=== PATIENT | male | born 2000 | race Hispanic/Latino ===

== ENCOUNTER → 2019-05-26 | Day surgery (SDC) | payer SELFPAY ==
[~2019-05-26] MED LIST: FENTANYL CITRATE/PF 100MCG/2 ML INJ ONE; MIDAZOLAM HCL 2 MG/2 ML VIAL ONE; PANTOPRAZOLE SO40 MG PO; PROPOFOL IV EMULSION 10 MG/ML 50 ML VIAL ONE
--- OUTSIDE RECORDS SUMMARY | 2019-05-26 08:17 | XMS REPORT ---
[facility] Address Unknown Phone Unavailable Care Team Providers Care Mother Tester Name Role Phone Unavailable Unavailable Payers Payer Name Policy Type Policy Number Effective Date Expiration Date Problems This patient has no known problems. Allergies, Adverse Reactions, Alerts Allergy Name Allergy Type Status Severity Reaction(s) Onset Date Inactive Date Treating Clinician Comments No Known Allergies DA Active U 2019-01-04 00:00:00 No Known Allergies DA Active U 2017-12-10 00:00:00 Medications This patient has no known medications. Encounters Start Date/Time End Date/Time Encounter Type Admission Type Attending Clinicians Care Facility Care Department Encounter ID 2017-10-26 00:00:00 2017-10-26 00:00:00 Outpatient [facility] [id number] 2017-08-06 00:00:00 2017-08-06 00:00:00 Outpatient [facility] [id number] 2017-08-04 00:00:00 2017-08-04 00:00:00 Outpatient [facility] [id number] 2017-07-17 00:00:00 2017-07-17 00:00:00 Outpatient [facility] [id number] 2017-06-16 08:07:53 2017-06-16 08:07:53 Outpatient [facility] [id number] 2017-04-02 00:00:00 2017-04-02 00:00:00 Outpatient [facility] [id number] 2017-03-13 00:00:00 2017-03-13 00:00:00 Outpatient [facility] [id number] 2017-03-09 00:00:00 2017-03-09 00:00:00 Outpatient [facility] [id number] 2017-02-05 07:53:26 2017-02-05 07:53:26 Outpatient [facility] [id number] Results Test Description Test Time Test Comments Text Results Atomic Results Result Comments BASIC METABOLIC PANEL 2018-12-22 18:47:00 SODIUM (test code=NA) 138 mmol/L 136-145 POTASSIUM (test code=K) 4.0 mmol/L 3.5-5.1 CHLORIDE (test code=CL) 102.0 mmol/L 98-107 CARBON DIOXIDE (test code=CO2) 27.0 mmol/L 21-32 ANION GAP (test code=GAP) 13.0 10-20 GLUCOSE (test code=GLU) 95 mg/dL 74-106 BLOOD UREA NITROGEN (test code=BUN) 7 mg/dL 7-18 GLOMERULAR FILTRATION RATE (test code=GFR) > 60 mL/min >=60 Estimated GFR by using Modified MDRD formula.Chronic kidney disease is defined as either kidney damageor GFR <60 mL/min/1.73 m2 for >3 months. CREATININE (test code=CREAT) 0.90 mg/dL 0.7-1.3 BUN/CREATININE RATIO (test code=BUN/CREA) 7.8 10-20 CALCIUM (test code=CA) 9.5 mg/dL 8.5-10.1 HEPATIC FUNCTION [id number] 18:47:00* Test Item Value Reference Range Comments TOTAL PROTEIN (test code=PROT) 8.9 gram/dL 6.4-8.2 ALBUMIN (test code=ALB) 4.4 g/dL 3.4-5.0 GLOBULIN (test code=GLOB) 4.5 gram/dL 2.7-4.2 ALBUMIN/GLOBULIN RATIO (test code=A/G) 1.0 0.75-1.50 BILIRUBIN TOTAL (test code=BILT) 0.80 mg/dL 0.0-1.0 BILIRUBIN DIRECT (test code=BILD) 0.25 mg/dL 0.0-0.20 SGOT/AST (test code=AST) 23 IUnit/L 15-37 SGPT/ALT (test code=ALT) 72 IUnit/L 12-78 ALKALINE PHOSPHATASE TOTAL (test code=ALKP) 80 IUnit/L 65-260 [id number] 18:47:00* Test Item Value Reference Range Comments LIPASE (test code=LIP) 68 U/L 73.0-393.0 [id number] 18:47:00* Test Item Value Reference Range Comments TROPONIN-I (test code=TROPI) <0.015 ng/mL 0-0.045 - XR ABDOMEN AP 1 [id number] 18:42:00 FAX: Devi Kendrick NP [place]: St: REG Name: MICHAEL HENNING [facility] : [birth year] Age/S: 18/M [address] [facility] Unit #: [id number] Loc: [place] [address] Phys: Devi Kendrick NP Acct: [id number] Dis Date: Status: REG ER PHONE #: [phone] Exam Date: 12/22/2018 1841 FAX #: [phone] Reason: ABDOMINAL PAIN EXAMS: CPT CODE: [id number] XR ABDOMEN AP 1 V [id number] REASON FOR EXAM: ABDOMINAL PAIN EXAM ORDER DATE: 12/22/2018 5:56 PM Attending Latricia: Zaina Kendrick NP PROCEDURE: - XR ABDOMEN AP 1 V COMP ARISON: FINDINGS: One view of the abdomen obtained at 6:37 PM. Sc attered fecal material is seen in the colon. The small bowel is unremarka ble. No evidence of organomegaly or evidence of ascites. No evidence of free air. IMPRESSION: Unremarkable abdomen. Lindy ctronically Signed by Latricia Joyce on 12/22/2018 at 1842 Reported and signed by: Gordo Joyce M.D. CC: Devi Kendrick NP Technologist: AKYLA PICKARD Trnscrd Date/Time/By: 12/22/2018 (1841) : By: Divina NOVOA Orig Print D/T: S: 12/22/2018 (1845) MARLYN JERNIGAN 1 Signed Report BASIC METABOLIC [id number] 18:24:00* Test Item Value Reference Range Comments SODIUM (test code=NA) 138 mmol/L 136-145 POTASSIUM (test code=K) 4.0 mmol/L 3.5-5.1 CHLORIDE (test code=CL) 102.0 mmol/L 98-107 CARBON DIOXIDE (test code=CO2) mmol/L 21-32 ANION GAP (test code=GAP) 10-20 GLUCOSE (test code=GLU) mg/dL 74-106 BLOOD UREA NITROGEN (test code=BUN) mg/dL 7-18 GLOMERULAR FILTRATION RATE (test code=GFR) mL/min >=60 CREATININE (test code=CREAT) mg/dL 0.7-1.3 BUN/CREATININE RATIO (test code=BUN/CREA) 10-20 CALCIUM (test code=CA) mg/dL 8.5-10.1 HEPATIC FUNCTION [id number] 18:24:00* Test Item Value Reference Range Comments TOTAL PROTEIN (test code=PROT) gram/dL 6.4-8.2 ALBUMIN (test code=ALB) g/dL 3.4-5.0 GLOBULIN (test code=GLOB) gram/dL 2.7-4.2 ALBUMIN/GLOBULIN RATIO (test code=A/G) 0.75-1.50 BILIRUBIN TOTAL (test code=BILT) mg/dL 0.0-1.0 BILIRUBIN DIRECT (test code=BILD) mg/dL 0.0-0.20 SGOT/AST (test code=AST) IUnit/L 15-37 SGPT/ALT (test code=ALT) IUnit/L 12-78 ALKALINE PHOSPHATASE TOTAL (test code=ALKP) IUnit/L 65-260 [id number] 18:24:00* Test Item Value Reference Range Comments LIPASE (test code=LIP) U/L 73.0-393.0 [id number] 18:24:00* Test Item Value Reference Range Comments TROPONIN-I (test code=TROPI) ng/mL 0-0.045 URINALYSIS [id number] 18:17:00* Test Item Value Reference Range Comments UA COLOR (test code=COLU) Light-Yellow YELLOW UA APPEARANCE (test code=APPU) CLEAR CLEAR UA GLUCOSE DIPSTICK (test code=DGLUU) NEGATIVE mg/dL NEGATIVE UA BILIRUBIN DIPSTICK (test code=BILU) NEGATIVE mg/dL NEGATIVE UA KETONE DIPSTICK (test code=KETU) 40 (2+) mg/dL NEGATIVE UA SPECIFIC GRAVITY (test code=SGU) 1.012 1.001-1.035 UA BLOOD DIPSTICK (test code=ANAHY) Negative mg/dL NEGATIVE UA PH DIPSTICK (test code=DEVANG) 7.5 5.0-8.0 UA PROTEIN DIPSTICK (test code=PROU) NEGATIVE mg/dL NEGATIVE UA UROBILINIOGEN DIPSTICK (test code=URO) Normal mg/dL NEGATIVE UA NITRITE DIPSTICK (test code=TRENT) NEGATIVE NEGATIVE UA LEUKOCYTE ESTERASE W REFLEX (test code=LEUUR) NEGATIVE Elena/uL NEGATIVE UA WBC (test code=WBCU) 0-5 per HPF 0-5 UA RBC (test code=RBCU) 0-3 #/HPF 0-5 UA EPITHELIAL CELLS (test code=EPIU) Few (2-5/hpf) per HPF FEW UA BACTERIA (test code=BACU) FEW #/HPF NONE UA MUCUS (test code=MUCU) FEW #/LPF FEW Urine Source? Clean CatchCBC W/O [id number] 18:14:00* Test Item Value Reference Range Comments WHITE BLOOD CELL (test code=WBC) 9.3 K/mm3 4.5-12.5 RED BLOOD CELL (test code=RBC) 5.36 mill/mm3 4.0-5.8 HEMOGLOBIN (test code=HGB) 15.5 gram/dL 13.0-17.5 HEMATOCRIT (test code=HCT) 45.2 % 42.0-52.0 MEAN CELL VOLUME (test code=MCV) 84.3 fL 80-98 MEAN CELL HGB (test code=MCH) 28.9 picogram 27.0-33.0 MEAN CELL HGB CONCETRATION (test code=MCHC) 34.3 gram/dL 33.0-36.0 RED CELL DISTRIBUTION WIDTH (test code=RDW) 13.1 % 11.6-16.2 PLATELET COUNT (test code=PLT) 354 K/mm3 150-450 MEAN PLATELET VOLUME (test code=MPV) 9.6 fL 6.7-11.0 URINALYSIS [id number] 18:09:00* Test Item Value Reference Range Comments UA COLOR (test code=COLU) Light-Yellow YELLOW UA APPEARANCE (test code=APPU) CLEAR CLEAR UA GLUCOSE DIPSTICK (test code=DGLUU) NEGATIVE mg/dL NEGATIVE UA BILIRUBIN DIPSTICK (test code=BILU) NEGATIVE mg/dL NEGATIVE UA KETONE DIPSTICK (test code=KETU) 40 (2+) mg/dL NEGATIVE UA SPECIFIC GRAVITY (test code=SGU) 1.012 1.001-1.035 UA BLOOD DIPSTICK (test code=ANAHY) Negative mg/dL NEGATIVE UA PH DIPSTICK (test code=DEVANG) 7.5 5.0-8.0 UA PROTEIN DIPSTICK (test code=PROU) NEGATIVE mg/dL NEGATIVE UA UROBILINIOGEN DIPSTICK (test code=URO) Normal mg/dL NEGATIVE UA NITRITE DIPSTICK (test code=TRENT) NEGATIVE NEGATIVE UA LEUKOCYTE ESTERASE W REFLEX (test code=LEUUR) NEGATIVE Elena/uL NEGATIVE UA WBC (test code=WBCU) per HPF 0-5 UA RBC (test code=RBCU) per HPF 0-5 UA EPITHELIAL CELLS (test code=EPIU) per HPF Few UA BACTERIA (test code=BACU) per HPF NONE Urine Source? Clean CatchCBC W/O [id number] 18:09:00* Test Item Value Reference Range Comments WHITE BLOOD CELL (test code=WBC) K/mm3 4.5-12.5 RED BLOOD CELL (test code=RBC) mill/mm3 4.0-5.8 HEMOGLOBIN (test code=HGB) 15.5 gram/dL 13.0-17.5 HEMATOCRIT (test code=HCT) 45.2 % 42.0-52.0 MEAN CELL VOLUME (test code=MCV) fL 80-98 MEAN CELL HGB (test code=MCH) picogram 27.0-33.0 MEAN CELL HGB CONCETRATION (test code=MCHC) gram/dL 33.0-36.0 RED CELL DISTRIBUTION WIDTH (test code=RDW) % 11.6-16.2 PLATELET COUNT (test code=PLT) K/mm3 150-450 MEAN PLATELET VOLUME (test code=MPV) fL 6.7-11.0 URINALYSIS [id number] 00:37:00* Test Item Value Reference Range Comments UA COLOR (test code=COLU) YELLOW YELLOW UA APPEARANCE (test code=APPU) CLEAR CLEAR UA GLUCOSE DIPSTICK (test code=DGLUU) norm mg/dL NEGATIVE UA BILIRUBIN DIPSTICK (test code=BILU) NEGATIVE mg/dL NEGATIVE UA KETONE DIPSTICK (test code=KETU) neg mg/dL NEGATIVE UA SPECIFIC GRAVITY (test code=SGU) 1.010 1.001-1.035 UA BLOOD DIPSTICK (test code=ANAHY) neg Jeronimo/uL NEGATIVE UA PH DIPSTICK (test code=DEVANG) 6.5 5.0-8.0 UA PROTEIN DIPSTICK (test code=PROU) neg mg/dL Neg-15 UA UROBILINIOGEN DIPSTICK (test code=URO) norm mg/dL 0.0-0.2 UA NITRITE DIPSTICK (test code=TRENT) NEGATIVE NEGATIVE UA LEUKOCYTE ESTERASE DIPSTICK (test code=LEUU) neg uL NEGATIVE UA WBC (test code=WBCU) 0-5 per HPF 0-5 UA RBC (test code=RBCU) NONE SEEN per HPF 0-5 UA EPITHELIAL CELLS (test code=EPIU) Rare (0-1/hpf) per HPF Few UA BACTERIA (test code=BACU) TRACE per HPF NONE Urine Source? Clean CatchDRUGS OF ABUSE SCREEN [id number] 00:37:00* Test Item Value Reference Range Comments URN COCAINE (test code=COCAURN) NEGATIVE NEGATIVE URN CANNABINOIDS (test code=CANNABURN) POSITIVE NEGATIVE URN AMPHETAMINE (test code=AMPHETURN) NEGATIVE NEGATIVE URN BARBITURATE (test code=BARBITURN) NEGATIVE NEGATIVE URN BENZODIAZEPINE (test code=BENZOURN) NEGATIVE NEGATIVE URN OPIATES (test code=OPIATURN) NEGATIVE NEGATIVE URN PHENCYCLIDINE (PCP) (test code=PHENCURN) NEGATIVE NEGATIVE Urine Source? Clean CatchURINALYSIS [id number] 00:34:00* Test Item Value Reference Range Comments UA COLOR (test code=COLU) YELLOW YELLOW UA APPEARANCE (test code=APPU) CLEAR CLEAR UA GLUCOSE DIPSTICK (test code=DGLUU) norm mg/dL NEGATIVE UA BILIRUBIN DIPSTICK (test code=BILU) NEGATIVE mg/dL NEGATIVE UA KETONE DIPSTICK (test code=KETU) neg mg/dL NEGATIVE UA SPECIFIC GRAVITY (test code=SGU) 1.010 1.001-1.035 UA BLOOD DIPSTICK (test code=ANAHY) neg Jeronimo/uL NEGATIVE UA PH DIPSTICK (test code=DEVANG) 6.5 5.0-8.0 UA PROTEIN DIPSTICK (test code=PROU) neg mg/dL Neg-15 UA UROBILINIOGEN DIPSTICK (test code=URO) norm mg/dL 0.0-0.2 UA NITRITE DIPSTICK (test code=TRENT) NEGATIVE NEGATIVE UA LEUKOCYTE ESTERASE DIPSTICK (test code=LEUU) neg uL NEGATIVE UA WBC (test code=WBCU) 0-5 per HPF 0-5 UA RBC (test code=RBCU) NONE SEEN per HPF 0-5 UA EPITHELIAL CELLS (test code=EPIU) Rare (0-1/hpf) per HPF Few UA BACTERIA (test code=BACU) TRACE per HPF NONE Urine Source? Clean CatchDRUGS OF ABUSE SCREEN [id number] 00:34:00* Test Item Value Reference Range Comments URN COCAINE (test code=COCAURN) NEGATIVE URN CANNABINOIDS (test code=CANNABURN) NEGATIVE URN AMPHETAMINE (test code=AMPHETURN) NEGATIVE URN BARBITURATE (test code=BARBITURN) NEGATIVE URN BENZODIAZEPINE (test code=BENZOURN) NEGATIVE URN OPIATES (test code=OPIATURN) NEGATIVE URN PHENCYCLIDINE (PCP) (test code=PHENCURN) NEGATIVE Urine Source? Clean Catch- US ABDOMEN [id number] 23:18:00 Name: LIMICHAEL [facility] : 2000 Age/S: 18 / M [address] [facility] Unit #: [id number] Loc: [place] [address] Phys: Yaneth Valadez MD Acct: [id number] Di s Date: Status: REG ER PHONE #: Exam Date: 12/17/2018 2250 FAX #: [phone] Reason: ABD PAIN EXAMS: CPT CODE: [id number] US ABDOMEN CO MPLETE [id number] AFTER HOURS SERVICE ON: 11:16 PM Abdomen Ultrasound Location Code M1 2 History: ABD PAIN Technique: Real-time turk scale, Doppler spectral analysis and Doppler color flow evaluation was performed using a dedicated transducer. Findings: The liver is coarse and echogenic, suggesting underlying hepatocellular disease whi ch is most commonly secondary to fatty infiltration. This does not exclud e other hepatic etiologies. Liver contour is not nodular. There is no spl enomegaly. The pancreas is limited. The gallbladder is not t hickened and there is no pericholecystic fluid. There are no gallstones. There is no biliary dilatation. Common bile duct measures 3 mm. Right kidney measures 10 x 7 x 6 cm. Left kidney measures 11 x 7 x 5 cm. No hydronephrosis or calculi are seen. Margins of the kidneys are balderas boptimally visualized. Adequate arterial inflow and venous outflow noted i n both kidneys. Aorta and IVC are limited. Impress ion: Findings in the liver suggesting fatty infiltration. Unremarkable gallbladder. at 6342 Reported and signed by: Flor Graves M.D. PAGE 1 Signed Report (C ONTINUED) Name: MICHAEL [facility] 2000 Age/S: 18 / M [address] [facility] it #: [id number] Loc: [place] [address] Phys: Kandis Valadez MD Acct: [id number] Dis Date: Status: REG ER PHONE #: [phone] Exam Date: 12/17/2018 225 FAX #: [phone] Reason: ABD PAIN E XAMS: CPT CODE: [id number] US ABDOMEN COMPLETE [id number] <Continued> CC: Calvin Way MD Technologist: Silas Peterson [facility] Date/Time: 12/17/2018 (2317) [email or web address] Orig Print D/T: S: 12/17/2018 (2323) Probe: PAGE 2 Signed Report BASIC METABOLIC PANEL 2018-12-17 22:53:00* Test Item Value Reference Range Comments SODIUM (test code=NA) 139 mmol/L 136-145 POTASSIUM (test code=K) 3.9 mmol/L 3.5-5.1 CHLORIDE (test code=CL) 104 mmol/L 101-109 CARBON DIOXIDE (test code=CO2) 26.3 mmol/L 21-32 ANION GAP (test code=GAP) 13 mmol/L 10-20 GLUCOSE (test code=GLU) 100 mg/dL 74-106 BLOOD UREA NITROGEN (test code=BUN) 8 mg/dL 3-21 GLOMERULAR FILTRATION RATE (test code=GFR) > 60 mL/min >=60 Estimated GFR by using Modified MDRD formula.Chronic kidney disease is defined as either kidney damageor GFR <60 mL/min/1.73 m2 for >3 months. CREATININE (test code=CREAT) 0.82 mg/dL 0.55-1.3 BUN/CREATININE RATIO (test code=BUN/CREA) 9.8 10-20 CALCIUM (test code=CA) 8.7 mg/dL 8.4-10.2 HEPATIC FUNCTION [id number] 22:53:00* Test Item Value Reference Range Comments TOTAL PROTEIN (test code=PROT) 8.4 g/dL 6.5-8.4 ALBUMIN (test code=ALB) 4.2 g/dL 3.4-4.8 GLOBULIN (test code=GLOB) 4.2 G/DL 1-10 ALBUMIN/GLOBULIN RATIO (test code=A/G) 1.00 RATIO 0.75-1.50 BILIRUBIN TOTAL (test code=BILT) 0.70 mg/dL 0.0-1.0 BILIRUBIN DIRECT (test code=BILD) 0.20 mg/dL 0.0-0.30 SGOT/AST (test code=AST) 33 U/L 6-32 SGPT/ALT (test code=ALT) 117 U/L 12-78 Note: Change in REFERENCE RANGE due to new reagent method. ALKALINE PHOSPHATASE TOTAL (test code=ALKP) 85 U/L 38-126 [id number] 22:53:00* Test Item Value Reference Range Comments LIPASE (test code=LIP) 71 U/L 128-270 BASIC METABOLIC [id number] 22:47:00* Test Item Value Reference Range Comments SODIUM (test code=NA) 139 mmol/L 136-145 POTASSIUM (test code=K) 3.9 mmol/L 3.5-5.1 CHLORIDE (test code=CL) 104 mmol/L 101-109 CARBON DIOXIDE (test code=CO2) 26.3 mmol/L 21-32 ANION GAP (test code=GAP) 13 mmol/L 10-20 GLUCOSE (test code=GLU) 100 mg/dL 74-106 BLOOD UREA NITROGEN (test code=BUN) 8 mg/dL 3-21 GLOMERULAR FILTRATION RATE (test code=GFR) > 60 mL/min >=60 Estimated GFR by using Modified MDRD formula.Chronic kidney disease is defined as either kidney damageor GFR <60 mL/min/1.73 m2 for >3 months. CREATININE (test code=CREAT) 0.82 mg/dL 0.55-1.3 BUN/CREATININE RATIO (test code=BUN/CREA) 9.8 10-20 CALCIUM (test code=CA) 8.7 mg/dL 8.4-10.2 HEPATIC FUNCTION [id number] 22:47:00* Test Item Value Reference Range Comments TOTAL PROTEIN (test code=PROT) gram/dL 6.4-8.2 ALBUMIN (test code=ALB) g/dL 3.4-5.0 GLOBULIN (test code=GLOB) g/dL 2.7-4.2 ALBUMIN/GLOBULIN RATIO (test code=A/G) 0.75-1.50 BILIRUBIN TOTAL (test code=BILT) mg/dL 0.2-1.2 BILIRUBIN DIRECT (test code=BILD) mg/dL 0.0-0.20 SGOT/AST (test code=AST) IUnit/L 15-37 SGPT/ALT (test code=ALT) U/L 10-69 ALKALINE PHOSPHATASE TOTAL (test code=ALKP) IUnit/L 65-260 [id number] 22:47:00* Test Item Value Reference Range Comments LIPASE (test code=LIP) Unit/L 144-286 CBC W/O [id number] 22:38:00* Test Item Value Reference Range Comments WHITE BLOOD CELL (test code=WBC) 11.1 K/mm3 4.5-12.5 RED BLOOD CELL (test code=RBC) 5.41 mill/mm3 4.0-5.8 HEMOGLOBIN (test code=HGB) 15.4 gram/dL 13.0-17.5 HEMATOCRIT (test code=HCT) 46.3 % 42.0-52.0 MEAN CELL VOLUME (test code=MCV) 85.6 fL 80-98 MEAN CELL HGB (test code=MCH) 28.5 picogram 27.0-33.0 MEAN CELL HGB CONCETRATION (test code=MCHC) 33.3 gram/dL 33.0-36.0 RED CELL DISTRIBUTION WIDTH (test code=RDW) 12.3 % 11.6-16.2 RED CELL DISTRIBUTION WIDTH SD (test code=RDW-SD) 39.1 fL 37.0-51.0 PLATELET COUNT (test code=PLT) 333 K/mm3 150-450 MEAN PLATELET VOLUME (test code=MPV) 9.5 fL 6.7-11.0
[2019-05-26 11:33] VITALS: BP 123/71
--- NOTE | 2019-05-26 11:55 | Operative Report ---
DATE OF PROCEDURE: 05/26/2019 SURGEON: Jorge A Fiore MD PROCEDURE PERFORMED: Esophagogastroduodenoscopy. PREOPERATIVE DIAGNOSIS: Abdominal pain. POSTOPERATIVE DIAGNOSIS: Gastritis and gastroparesis. PREOPERATIVE MEDICATIONS: Consisted of IV sedation administered MAC anesthesia DESCRIPTION OF PROCEDURE: Using an [employer] video gastroscope was inserted into the patient's oropharynx and advanced to the hypopharynx and down into the esophagus. The mucosa present in esophagus was normal. Several biopsies were obtained looking for eosinophilic esophagitis. The GE junction was at 37 cm. No hiatal hernia was seen. The stomach was entered and insufflated with air. The mucosa present in the cardia, fundus, body, and antrum was viewed. There was evidence of a gastritis in the body and antrum. No ulcerations were seen. Biopsies obtained in the antrum and fundus looking for the H. pylori infection. Of interest is that there was no gastric motility noted during this study. The pylorus was normal and into the duodenal bulb and postbulbar duodenum were found to be within normal limits. The endoscope was drawn back up into the stomach. Again, no motility was seen. A photograph was obtained. The endoscope was retroflexed viewing the cardia and fundus from below was normal. The endoscope was then placed back up into the esophagus, hypopharynx, oropharynx and out of patient's mouth and the procedure was ended. Jorge A Fiore MD SAF/MODL /[id number]
== END | disposition home or self-care (01) ==
LOC: OR 08:13
PROVIDERS: ATTEND Internal Medicine Gastroenterology
DX: K21.0 Gastro-esophageal reflux disease with esophagitis (principal); K29.50 Unspecified chronic gastritis without bleeding; K31.84 Gastroparesis; J45.909 Unspecified asthma, uncomplicated; Z68.43 Body mass index [BMI] 50.0-59.9, adult
CPT/HCPCS: 43239; J2250; J2704; J3010

== ENCOUNTER 2019-08-25 21:25 | Emergency (ER) | payer SELFPAY ==
[~2019-08-25] VITALS: Ht 180.3 cm; Wt 115.7 kg
[~2019-08-25 21:25] MED LIST changes: -FENTANYL CITRATE/PF 100MCG/2 ML INJ ONE; -MIDAZOLAM HCL 2 MG/2 ML VIAL ONE; -PROPOFOL IV EMULSION 10 MG/ML 50 ML VIAL ONE
[2019-08-25] MEDS ORDERED: NASONEX17 GM (22:06)
[2019-08-25] MEDS ORDERED: PREDNISONE20 MG PO (22:06)
[2019-08-25] MEDS ORDERED: ALBUTEROL0.63 MG/3 NEB (22:06)
== END 2019-08-25 22:36 | disposition home or self-care (01) ==
LOC: FSED 21:25
DX: R05 Cough (principal); J20.8 Acute bronchitis due to other specified organisms; J45.31 Mild persistent asthma with (acute) exacerbation
CPT/HCPCS: 99282

== ENCOUNTER 2022-01-22 12:20 | Emergency (ER) | payer SELFPAY ==
[~2022-01-22] VITALS: Ht 180.3 cm; Wt 138.3 kg
[~2022-01-22 12:20] MED LIST changes: +ALBUTEROL0.63 MG/3 NEB; +NASONEX17 GM; +PREDNISONE20 MG PO
[2022-01-22] MEDS ORDERED: BENZONATATE200 MG PO (17:01)
[2022-01-22] MEDS ORDERED: PREDNISONE50 MG PO (17:01)
[2022-01-22] MEDS ORDERED: MOTRIN800 MG PO (17:01)
== END 2022-01-22 13:45 | disposition home or self-care (01) ==
LOC: ER 12:45
DX: R05.9 Cough, unspecified (principal); J06.9 Acute upper respiratory infection, unspecified; J45.909 Unspecified asthma, uncomplicated; K21.9 Gastro-esophageal reflux disease without esophagitis
CPT/HCPCS: 71046; 99283; U0002